=== PATIENT | female | born 1995 | race Caucasian/White ===

== ENCOUNTER 2018-01-14 22:34 | Emergency (ER) | payer SELFPAY ==
[~2018-01-14] VITALS: Ht 154.9 cm; Wt 58.6 kg
[2018-01-14 22:39] VITALS: BP 125/84
--- NOTE | 2018-01-14 22:43 | NUR ---
TO BED # 6 AMB, REPORT GIVEN TO ONESIMO GARCIA.
--- NOTE | 2018-01-14 23:23 | NUR ---
PT C/O UPPER ABD PAIN INTMITTENT FOR PAST 3 WEEKS W/ N/V. ABD IS FLAT, SOFT, NON TENDER, ACTIVE BS X4. PT IS STATES LMP October. 3 PREGNANCIES, 1 LIVING, 1 MISCARRIAGE PMH HYPOTHYROID NKDA
--- NOTE | 2018-01-15 01:05 | NUR ---
Dr. Johnson evaluating patient at bedside.
[2018-01-15] MEDS ORDERED: NACL 0.9% 1,000 ML IV SCH (01:29)
[2018-01-15] MEDS ORDERED: ONDANSETRON 4 MG/2 ML VIAL IVP ONE (01:30)
--- NOTE | 2018-01-15 01:38 | NUR ---
lab at bedside.
[2018-01-15 01:54] LABS: BASOPHILS % (AUTO) 0.1 % (0.0-2.0); EOSINOPHILS # (AUTO) 0.1 K/uL (0-0.4); EOSINOPHILS % (AUTO) 0.8 % (0.0-4.0); HEMATOCRIT 40.2 % (36-48); HEMOGLOBIN 13.2 g/dL (12.0-16.0); LYMPHOCYTES # (AUTO) 1.7 K/uL (2.5-16.5); LYMPHOCYTES % (AUTO) 13.7 % (20.5-51.1); MEAN CORPUSCULAR HEMOGLOBIN 28 pg (27-31); MEAN CORPUSCULAR HGB CONC 33 g/dL (33-37); MEAN CORPUSCULAR VOLUME 84.8 fL (80-94); MONOCYTES # (AUTO) 0.8 K/uL (0.8-1.0); MONOCYTES % (AUTO) 6.5 % (1.7-9.3); NEUTROPHILS # (AUTO) 9.9 K/uL (1.8-7.7); NEUTROPHILS % (AUTO) 78.9 % (42.2-75.2); PLATELET COUNT (AUTO) 201 K/uL (140-450); RED BLOOD CELL COUNT(AUTO) 4.74 MIL/uL (4.20-5.40); RED CELL DISTRIBUTION WIDTH 13.5 % (11.6-13.7); WHITE BLOOD COUNT (AUTO) 12.6 K/uL (4.8-10.8)
[2018-01-15 01:56] LABS: APPEARANCE,URINE CLEAR (CLEAR); BILIRUBIN,URINE NEGATIVE (NEGATIVE); BLOOD, URINE NEGATIVE (NEGATIVE); COLOR,URINE YELLOW (YELLOW); LEUKOCYTE ESTERASE ,URINE 1+ (NEGATIVE); NITRITE, URINE NEGATIVE (NEGATIVE); UGLUCOSE NEGATIVE (NEGATIVE)
[2018-01-15 02:04] LABS: ANION GAP 13.5 (8-16); CARBON DIOXIDE 23.9 mmol/L (21-32); CREATININE 0.6 mg/dL (0.6-1.3); POTASSIUM 3.4 mmol/L (3.5-5.1)
[2018-01-15 02:07] LABS: RBC,URINE 0-5 (RARE) /HPF (0-5)
[2018-01-15 02:10] LABS: ALBUMIN 2.9 g/dL (3.4-5.0); TOTAL BILIRUBIN 0.2 mg/dL (0.0-1.0)
[2018-01-15 03:09] VITALS: BP 122/83
== END 2018-01-15 03:10 | disposition home or self-care (01) ==
LOC: MED 22:34
DX: R10.9 Unspecified abdominal pain (principal); R11.10 Vomiting, unspecified; R63.0 Anorexia; E03.9 Hypothyroidism, unspecified; Z91.02 Food additives allergy status
CPT/HCPCS: 36415; 76705; 76801; 80053; 81001; 81025; 83690; 85025; 87086; 99285; J2405; Q0092